=== PATIENT | female | born 1950 | race Asian ===

== ENCOUNTER 2017-01-02 08:52 | Day surgery (SDC) | payer MEDICARE, OTHER ==
[~2017-01-02] VITALS: Ht 154.9 cm; Wt 80.9 kg
[~2017-01-02 08:52] MED LIST: ASCO500 PO; ASPI81 PO; ATEN50TA PO; HYDR-309 PO; LOSA1TAB37 PO; LOVA20TA3 PO; METF500T4 PO; NITR0.4T SL; OMEG-11 PO; VITA400C70 PO
[2017-01-02] MEDS ORDERED: 0.9% SODIUM CHLORIDE 10 ML SYRINGE IVP ONE (08:55)
[2017-01-02 10:17] LABS: CALCIUM, TOTAL 8.7 mg/dL (8.8-10.5); CREATININE 0.98 mg/dL (0.60-1.30); POTASSIUM 4.3 mmol/L (3.5-5.1)
[2017-01-02] MEDS ORDERED: IOVERSOL 350 MG/ML 150 ML VIAL ONE (11:26)
[2017-01-02] MEDS ORDERED: METOPROLOL TARTRATE 5 MG/5 ML VIAL ONE (11:27)
[2017-01-02] MEDS ORDERED: NITROGLYCERIN 400 MCG/SUBLINGUAL SPRAY 4.9 GM BOTTLE SL ONE (11:27)
== END 2017-01-02 12:40 | disposition home or self-care (01) ==
LOC: SDS 08:52 → EDSTATUS 11:00 → SDS 12:40
PROVIDERS: ATTEND Internal Medicine Cardiovascular Disease
DX: I25.110 Atherosclerotic heart disease of native coronary artery with unstable angina pectoris (principal); I11.0 Hypertensive heart disease with heart failure; I50.9 Heart failure, unspecified; E11.9 Type 2 diabetes mellitus without complications; I73.9 Peripheral vascular disease, unspecified; I65.29 Occlusion and stenosis of unspecified carotid artery; E78.5 Hyperlipidemia, unspecified; M54.9 Dorsalgia, unspecified; M54.30 Sciatica, unspecified side; Z79.82 Long term (current) use of aspirin; Z98.890 Other specified postprocedural states; Z90.49 Acquired absence of other specified parts of digestive tract
CPT/HCPCS: 36415; 75574; 80048; 93005; Q9967; J3490